=== PATIENT | male | born 1950 | race Hispanic/Latino ===

== ENCOUNTER → 2017-07-14 | Outpatient (CLI) | payer MEDICARE ==
[~2017-07-14] MED LIST: ALBU1.252 IH; AMLO5TAB2 PO; FERR-82 PO; FLUT1AER IH; HYDR-2132 PO; INSLAN SQ; ISOS30TA6 PO; METF10004 PO; MONT10TA24 PO; NAPR-1023 PO; PRED2.5T PO; SAW450CA7 PO; TIOT18CA3 IH; VALS320T15 PO
[2017-07-19 12:11] LABS: ALLERGEN D.FARINAE(MITE) <0.10 kU/L (Class 0)
== END | disposition home or self-care (01) ==
LOC: LAB 08:23
PROVIDERS: ATTEND Internal Medicine Critical Care Medicine
DX: J45.41 Moderate persistent asthma with (acute) exacerbation (principal)
CPT/HCPCS: 36415; 82785; 85651; 86003; 86005; 86606; 86612; 86635; 86698

== ENCOUNTER → 2017-07-16 | Outpatient (CLI) | payer MEDICARE | LOC: RAH 12:27 | PROVIDERS: ATTEND Internal Medicine Critical Care Medicine | DX: I25.10 Atherosclerotic heart disease of native coronary artery without angina pectoris (principal); J34.2 Deviated nasal septum; J32.9 Chronic sinusitis, unspecified | CPT/HCPCS: 70486; 71250 ==

== ENCOUNTER → 2018-07-19 | Outpatient (CLI) | payer MEDICARE ==
[~2018-07-19] MED LIST changes: -AMLO5TAB2 PO; +AMLO5TAB9 PO; +METF-446 PO; -METF10004 PO; -VALS320T15 PO; +VALS320T16 PO
[2018-07-22 04:14] LABS: ALLERGEN D.FARINAE(MITE) <0.10 kU/L (Class 0); ALLERGEN RUSSIAN THISTLE <0.10 kU/L (Class 0)
== END | disposition home or self-care (01) ==
LOC: LAB 07-18 15:50
PROVIDERS: ATTEND Allergy & Immunology
DX: J45.50 Severe persistent asthma, uncomplicated (principal)
CPT/HCPCS: 36415; 86003; 86005

== ENCOUNTER → 2018-09-02 | Outpatient (CLI) | payer MEDICARE | END | disposition home or self-care (01) | LOC: RAH 12:44 | PROVIDERS: ATTEND Internal Medicine | DX: R09.89 Other specified symptoms and signs involving the circulatory and respiratory systems (principal) | CPT/HCPCS: 93922 ==

== ENCOUNTER → 2019-01-02 | Outpatient (CLI) | payer MEDICARE | END | disposition home or self-care (01) | LOC: RAH 11:35 | PROVIDERS: ATTEND Internal Medicine | DX: M17.12 Unilateral primary osteoarthritis, left knee (principal) | CPT/HCPCS: 73560 ==

== ENCOUNTER → 2019-02-08 | Outpatient (CLI) | payer MEDICARE | END | disposition home or self-care (01) | LOC: RAH 09:25 | PROVIDERS: ATTEND Internal Medicine | DX: S93.401A Sprain of unspecified ligament of right ankle, initial encounter (principal); M79.89 Other specified soft tissue disorders; I70.0 Atherosclerosis of aorta; X58.XXXA Exposure to other specified factors, initial encounter; Y93.89 Activity, other specified; Y92.89 Other specified places as the place of occurrence of the external cause; Y99.8 Other external cause status | CPT/HCPCS: 73610 ==

== ENCOUNTER → 2020-07-02 | Outpatient (CLI) | payer MEDICARE ==
[~2020-07-02] MED LIST changes: +AMLO-257 PO; -AMLO5TAB9 PO; +ASPI-556 PO; +BENR30AU SQ; +CAND32TA9 PO; -FERR-82 PO; -HYDR-2132 PO; +HYDR-4457 PO; -ISOS30TA6 PO; +ISOS30TA92 PO; -METF-446 PO; -MONT10TA24 PO; +MONT10TA32 PO; +PRAV40TA3 PO; -PRED2.5T PO; -SAW450CA7 PO; +THEO300C5 PO; -VALS320T16 PO
[2020-07-02 09:05] LABS: BASOPHILS % (AUTO) 0.2 % (0.0-5.0); HEMATOCRIT 39.6 % (42-54); LYMPHOCYTES % (AUTO) 23.1 % (21.0-51.0); MEAN CORPUSCULAR HGB CONC 32.6 g/dL (32.0-36.0); MEAN CORPUSCULAR VOLUME 86.1 fL (79-99); MONOCYTES % (AUTO) 7.9 % (3.0-13.0); NEUTROPHILS % (AUTO) 68.6 % (40.0-77.0); PLATELET COUNT (AUTO) 216 K/uL (130-400); WHITE BLOOD COUNT (AUTO) 5.5 K/uL (4.8-10.8)
[2020-07-02 09:13] LABS: HEMOGLOBIN A1C 7.6 % (4.0-6.0)
[2020-07-02 09:25] LABS: ALBUMIN 3.8 g/dL (3.5-5.0); BILIRUBIN,TOTAL 0.3 mg/dL (0.2-1.0); THYROID STIMULATING HORMONE 1.87 uIU/mL (0.36-3.74); TOTAL PROTEIN, SERUM 7.4 g/dL (6.0-8.3)
== END | disposition home or self-care (01) ==
LOC: LAB 08:33
PROVIDERS: ATTEND Internal Medicine
DX: Z00.00 Encounter for general adult medical examination without abnormal findings (principal); I10 Essential (primary) hypertension; E11.42 Type 2 diabetes mellitus with diabetic polyneuropathy; D64.9 Anemia, unspecified; E78.5 Hyperlipidemia, unspecified
CPT/HCPCS: 36415; 80053; 80061; 82043; 82728; 83036; 84443; 85025

== ENCOUNTER → 2020-09-02 | Outpatient (CLI) | payer MEDICARE ==
[2020-09-02 09:23] LABS: HEMATOCRIT 39.4 % (42-54); LYMPHOCYTES % (AUTO) 21.6 % (21.0-51.0); MEAN CORPUSCULAR HEMOGLOBIN 27.9 pg (27.0-33.0); MEAN CORPUSCULAR HGB CONC 32.2 g/dL (32.0-36.0); MEAN CORPUSCULAR VOLUME 86.4 fL (79-99); MONOCYTES % (AUTO) 9.4 % (3.0-13.0); NEUTROPHILS % (AUTO) 68.8 % (40.0-77.0); PLATELET COUNT (AUTO) 213 K/uL (130-400); RED BLOOD CELL COUNT(AUTO) 4.56 MIL/uL (4.50-6.20); RED CELL DISTRIBUTION WIDTH 13.5 % (11.0-15.5); WHITE BLOOD COUNT (AUTO) 5.5 K/uL (4.8-10.8)
== END | disposition home or self-care (01) ==
LOC: LAB 08:31
PROVIDERS: ATTEND Internal Medicine
DX: I10 Essential (primary) hypertension (principal); D50.9 Iron deficiency anemia, unspecified; E11.42 Type 2 diabetes mellitus with diabetic polyneuropathy
CPT/HCPCS: 36415; 82728; 85025

== ENCOUNTER → 2020-12-16 | Outpatient (CLI) | payer MEDICARE ==
[2020-12-16 10:04] LABS: HEMATOCRIT 38.3 % (42-54); LYMPHOCYTES % (AUTO) 24.4 % (21.0-51.0); MEAN CORPUSCULAR HEMOGLOBIN 28.4 pg (27.0-33.0); MEAN CORPUSCULAR HGB CONC 33.4 g/dL (32.0-36.0); MEAN CORPUSCULAR VOLUME 85.1 fL (79-99); MONOCYTES % (AUTO) 8.5 % (3.0-13.0); NEUTROPHILS % (AUTO) 66.5 % (40.0-77.0); PLATELET COUNT (AUTO) 251 K/uL (130-400); RED CELL DISTRIBUTION WIDTH 13.8 % (11.0-15.5); WHITE BLOOD COUNT (AUTO) 6.4 K/uL (4.8-10.8)
[2020-12-16 10:16] LABS: POTASSIUM 3.6 mmol/L (3.5-5.1)
== END | disposition home or self-care (01) ==
LOC: LAB 09:26
PROVIDERS: ATTEND Internal Medicine
DX: I12.9 Hypertensive chronic kidney disease with stage 1 through stage 4 chronic kidney disease, or unspecified chronic kidney disease (principal); N18.2 Chronic kidney disease, stage 2 (mild); K29.50 Unspecified chronic gastritis without bleeding
CPT/HCPCS: 36415; 80048; 82728; 85025

== ENCOUNTER → 2023-05-11 | Outpatient (CLI) | payer OTHER ==
[~2023-05-11] MED LIST changes: +CAND32TA22 PO; -CAND32TA9 PO; +EMPA10TA PO; +ISOS20TA85 PO; +METF-446 PO; +MONT-39 PO; -MONT10TA32 PO
== END | disposition home or self-care (01) ==
LOC: RAH 09:27
PROVIDERS: ATTEND Internal Medicine
DX: I12.9 Hypertensive chronic kidney disease with stage 1 through stage 4 chronic kidney disease, or unspecified chronic kidney disease (principal); I77.9 Disorder of arteries and arterioles, unspecified; N18.9 Chronic kidney disease, unspecified; I11.9 Hypertensive heart disease without heart failure
CPT/HCPCS: 93306

== ENCOUNTER 2023-05-13 08:39 | Day surgery (SDC) | payer OTHER ==
[2023-05-10 11:22] LABS: BASOPHILS # (AUTO) 0.05 K/uL (0.00-0.20); BASOPHILS % (AUTO) 0.7 % (0.0-5.0); EOSINOPHILS # (AUTO) 0.37 K/uL (0.00-0.70); EOSINOPHILS % (AUTO) 5.3 % (0.0-8.0); HEMATOCRIT 43.5 % (42-54); IMMATURE GRANULOCYTE ABSOLUTE 0.03 K/uL (0-1); LYMPHOCYTES # (AUTO) 1.6 K/uL (1.0-4.8); MEAN CORPUSCULAR HEMOGLOBIN 29.4 pg (27.0-33.0); MEAN CORPUSCULAR HGB CONC 32.6 g/dL (32.0-36.0); MEAN CORPUSCULAR VOLUME 90.1 fL (79-99); MONOCYTES # (AUTO) 0.5 K/uL (0.1-1.0); NEUTROPHILS # (AUTO) 4.4 K/uL (1.8-7.7); NEUTROPHILS % (AUTO) 63.6 % (40.0-77.0); PLATELET COUNT (AUTO) 217 K/uL (130-400); RED BLOOD CELL COUNT(AUTO) 4.83 MIL/uL (4.50-6.20); RED CELL DISTRIBUTION WIDTH 13.7 % (11.0-15.5)
[2023-05-10 11:28] LABS: INR < 0.93 (0.85-1.15); PROTHROMBIN TIME 10.1 SEC (9.6-11.6)
[2023-05-10 11:29] LABS: PARTIAL THROMBOPLASTIN TIME 26.6 SEC (26.3-35.5)
[2023-05-10 11:53] VITALS: BP 152/71; PULSE 73; RESP 19
[~2023-05-13] VITALS: Ht 160 cm; Wt 69.4 kg
[2023-05-13] VITALS (17 sets, daily range): BP systolic 124–144; BP diastolic 12–86; PULSE 71–83; RESP 10–18
[2023-05-13] MEDS ORDERED: 0.9%NACL 1000ML 1,000 ML IV ONE (09:47)
[2023-05-13 09:59] LABS: CREATININE 0.9 mg/dL (0.5-1.5); POTASSIUM 3.3 mmol/L (3.5-5.1)
[2023-05-13] MEDS ORDERED: CLINDAMYCIN IVPB 900MG/50ML 50 ML IV ONE (10:02)
[2023-05-13] MEDS ORDERED: BUPIVACAINE/PF 0.5% 10ML VIAL ONE (10:19)
[2023-05-13] MEDS ORDERED: LIDOCAINE HCL 1% 10 ML VIAL ONE (10:19)
[2023-05-13] MEDS ORDERED: FENTANYL CITRATE PF 50 MCG/1 ML 2ML VIAL ONE (10:26)
[2023-05-13] MEDS ORDERED: PROPOFOL 10 MG/ML 20ML VIAL IV ONE (10:26)
[2023-05-13] MEDS ORDERED: MIDAZOLAM HCL 1 MG/ML 2ML VIAL ONE (10:26)
[2023-05-13] MEDS ORDERED: LIDOCAINE HCL 1% 10 ML VIAL MISC ONE (10:26)
[2023-05-13] MEDS ORDERED: BUPIVACAINE/PF 0.5% 10ML VIAL IJ ONE (10:27)
[2023-05-13] MEDS ORDERED: CEFAZOLIN SODIUM 2 GM VIAL IVPB ONE (10:36)
[2023-05-13] MEDS ORDERED: EPHEDRINE SULFATE 50 MG/ML AMPULE ONE (10:57)
[2023-05-13] MEDS ORDERED: ACETAMINOPHEN 1,000 MG/100 ML VIAL IV ONE (12:47)
== END 2023-05-13 14:00 | disposition home or self-care (01) ==
LOC: DAH 08:39
PROVIDERS: ATTEND Student in an Organized Health Care Education/Training Program
DX: R22.2 Localized swelling, mass and lump, trunk (principal); D22.5 Melanocytic nevi of trunk; D76.3 Other histiocytosis syndromes; L08.89 Other specified local infections of the skin and subcutaneous tissue; I10 Essential (primary) hypertension; E11.9 Type 2 diabetes mellitus without complications; Z88.0 Allergy status to penicillin; Z91.048 Other nonmedicinal substance allergy status; Z88.2 Allergy status to sulfonamides; Z83.3 Family history of diabetes mellitus; Z79.4 Long term (current) use of insulin; Z82.49 Family history of ischemic heart disease and other diseases of the circulatory system; Z79.51 Long term (current) use of inhaled steroids; Z79.84 Long term (current) use of oral hypoglycemic drugs; Z79.899 Other long term (current) drug therapy; Z98.890 Other specified postprocedural states
CPT/HCPCS: 85025; 85610; 85730; 36415 ×2; 93005; 21931; 11404; 80048; 82948 ×2; 88304; 88305; A6260; A4663; J3010; J7030; J0665 ×2; J3490 ×4; J2250; J2704; J0690; A4930 ×2; A4215; A4223; A4222; A4221; G0168

== ENCOUNTER → 2024-08-17 | Outpatient (CLI) | payer OTHER ==
[~2024-08-17] MED LIST changes: -ASPI-556 PO; -BENR30AU SQ; -HYDR-4457 PO; -ISOS20TA85 PO; -MONT-39 PO; -NAPR-1023 PO; -THEO300C5 PO
[2024-08-17] MEDS: REGADENOSON 0.4 MG/5 ML PF SYG IVP ONE (10:20)
== END | disposition home or self-care (01) ==
LOC: SHCH 08:07
PROVIDERS: ATTEND Internal Medicine
DX: I25.810 Atherosclerosis of coronary artery bypass graft(s) without angina pectoris (principal); R06.00 Dyspnea, unspecified
CPT/HCPCS: 78452; 93017; J2785; A9500 ×2

== ENCOUNTER → 2024-08-26 | Outpatient (CLI) | payer OTHER | END | disposition home or self-care (01) | LOC: SHCH 12:36 | PROVIDERS: ATTEND Internal Medicine | DX: I70.203 Unspecified atherosclerosis of native arteries of extremities, bilateral legs (principal); I74.3 Embolism and thrombosis of arteries of the lower extremities | CPT/HCPCS: 93925 ==

== ENCOUNTER → 2024-12-28 | Outpatient (CLI) | payer OTHER ==
[~2024-12-28] MED LIST changes: -PRAV40TA3 PO; +PRAV40TA62 PO
--- NOTE | 2024-12-29 08:28 | HMCIMG ---
EXAMINATION: SOFT TISSUE ULTRASOUND OF THE LEFT GROIN. CLINICAL HISTORY: Palpable swelling. COMPARISON: None. TECHNIQUE: Transverse and longitudinal images were obtained in the left groin. FINDINGS: There are lymph nodes that measure 1.0 x 0.5 x 1.0 cm, 0.6 x 0.4 x 0.5 cm, 0.5 x 0.5 x 0.6 cm , 0.9 x 0.6 x 0.9 cm, 1.1 x 1.2 x 1.1 cm, and 0.9 x 1.1 x 0.6 cm in the left groin in craniocaudal, AP, and transverse dimensions respectively. Hilar echoes are maintained. No increased vascularity. IMPRESSION: Mildly enlarged left inguinal lymph nodes. /[place]
== END | disposition home or self-care (01) ==
LOC: RAH 12:42
PROVIDERS: ATTEND Internal Medicine
DX: R59.1 Generalized enlarged lymph nodes (principal); R10.32 Left lower quadrant pain
CPT/HCPCS: 76882

== ENCOUNTER → 2025-01-03 | Outpatient (CLI) | payer OTHER ==
--- NOTE | 2025-01-03 17:22 | HMCIMG ---
EXAM: CT Abdomen and Pelvis without Intravenous Contrast CLINICAL HISTORY: Enlarged lymph nodes. TECHNIQUE: Axial computed tomography images of the abdomen and pelvis without intravenous contrast. Dose reduction technique was used including one or more of the following: automated exposure control, adjustment of mA and kV according to patient size, and/or iterative reconstruction. CONTRAST: None. COMPARISON: None provided. FINDINGS: LUNG BASES: Atelectasis at the lung bases. LIVER: Unremarkable. GALLBLADDER AND BILE DUCTS: Unremarkable. No calcified stone. No ductal dilation. PANCREAS: Fatty infiltration of the pancreas seen. SPLEEN: Unremarkable. ADRENAL GLANDS: Unremarkable. KIDNEYS, URETERS, AND BLADDER: Nonspecific perinephric fat stranding. No hydronephrosis or nephrolithiasis. No ureteral or bladder calculi. STOMACH AND BOWEL: Large amount of stool in the colon. No obstruction. No wall thickening. No CT evidence of colitis or acute diverticulitis. APPENDIX: No CT evidence for appendicitis. PERITONEUM: No free fluid. No free air. LYMPH NODES: Enlarged lymph nodes. REPRODUCTIVE: Unremarkable as visualized. VASCULATURE: Atherosclerotic aorto iliac bifurcation. No aortic aneurysm. ABDOMINAL WALL AND SOFT TISSUES: Unremarkable. BONES: Mild to moderate degenerative changes in the lumbar spine. Mild to moderate anterolisthesis of L4 on L5. No fracture or suspicious osseous abnormality. IMPRESSION: 1. No acute findings. /[place]
== END | disposition home or self-care (01) ==
LOC: RAH 12:51
PROVIDERS: ATTEND Nurse Practitioner Family
DX: K86.89 Other specified diseases of pancreas (principal); R59.1 Generalized enlarged lymph nodes; R10.32 Left lower quadrant pain; J98.11 Atelectasis; I70.0 Atherosclerosis of aorta; M47.816 Spondylosis without myelopathy or radiculopathy, lumbar region; M43.16 Spondylolisthesis, lumbar region
CPT/HCPCS: 74176

== ENCOUNTER → 2025-05-10 | Outpatient (CLI) | payer OTHER ==
--- NOTE | 2025-05-10 22:17 | HMCIMG ---
STUDY: X-RAY OF THE RIGHT SHOULDER, 2 VIEWS HISTORY: Chronic right shoulder pain; presence of right artificial shoulder joint. TECHNIQUE: AP views of the right shoulder in internal and external rotation are submitted for interpretation. COMPARISON: None provided. FINDINGS: Bones and joints: Right shoulder arthroplasty is in place with the humeral and glenoid components well seated and in anatomic alignment. No periprosthetic fracture, dislocation, or evident hardware loosening is identified. The acromioclavicular joint appears normal in alignment and joint space without significant degenerative change. Soft tissues: Periarticular soft tissues are unremarkable without focal swelling, soft tissue gas, or radiopaque foreign body. No pathologic calcifications are seen. IMPRESSION: * Right shoulder arthroplasty without radiographic evidence of complication, including no periprosthetic fracture, dislocation, or obvious hardware loosening. * Normal acromioclavicular joint. /[place]
== END ==
LOC: RAH 10:55
DX: M25.511 Pain in right shoulder (principal); Z96.611 Presence of right artificial shoulder joint; G89.29 Other chronic pain
CPT/HCPCS: 73030